=== PATIENT | male | born 1965 | race Caucasian/White ===

== ENCOUNTER 2019-10-09 09:29 | Outpatient (CLI) | payer OTHER ==
[~2019-10-09 09:29] MED LIST: BENADRYL25 MG PO; CALADRYL CLEAR177 ML TP; MEDROL4 MG PO; PEPCID40 MG PO
== END 2019-10-09 13:19 | disposition home or self-care (01) ==
LOC: TOM 09:29
DX: R10.84 Generalized abdominal pain (principal); E11.9 Type 2 diabetes mellitus without complications; R19.5 Other fecal abnormalities; R39.16 Straining to void; N50.819 Testicular pain, unspecified; Z76.0 Encounter for issue of repeat prescription

== ENCOUNTER → 2021-02-22 07:17 | Outpatient (CLI) | payer OTHER ==
[~2021-02-22 07:17] MED LIST changes: +AMLODIPINE BESYL5 MG PO; +ATORVASTATIN CA40 MG PO; +CLOPIDOGREL BIS75 MG PO; +KETO10TA2 PO; +LOSARTAN POTAS100 MG PO; +METOPROLOL SUC100 MG PO; +SYNJARDY XR 121 EACH PO; +TOUJEO SOL300 UNIT/1 SQ; +XOPENEX0.63 MG/3 IH
== END | disposition home or self-care (01) ==
LOC: LAB 07:17
PROVIDERS: ATTEND General Practice
DX: R60.0 Localized edema (principal); F17.200 Nicotine dependence, unspecified, uncomplicated; Z71.6 Tobacco abuse counseling; M79.604 Pain in right leg; M79.605 Pain in left leg; I10 Essential (primary) hypertension

== ENCOUNTER 2021-03-02 09:19 | Outpatient (CLI) | payer OTHER ==
[~2021-03-02 09:19] MED LIST changes: -AMLODIPINE BESYL5 MG PO; -ATORVASTATIN CA40 MG PO; -CLOPIDOGREL BIS75 MG PO; -KETO10TA2 PO; -LOSARTAN POTAS100 MG PO; -METOPROLOL SUC100 MG PO; -SYNJARDY XR 121 EACH PO; -TOUJEO SOL300 UNIT/1 SQ; -XOPENEX0.63 MG/3 IH
== END 2021-03-02 10:35 | disposition home or self-care (01) ==
LOC: NUCLEAR 09:19
PROVIDERS: ATTEND General Practice
DX: M79.604 Pain in right leg (principal); M79.605 Pain in left leg; I73.9 Peripheral vascular disease, unspecified

== ENCOUNTER 2021-03-03 08:38 | Outpatient (CLI) | payer OTHER | END 2021-03-03 09:25 | disposition home or self-care (01) | LOC: NUCLEAR 08:38 | PROVIDERS: ATTEND General Practice | DX: M79.605 Pain in left leg (principal); M79.604 Pain in right leg; R60.0 Localized edema ==

== ENCOUNTER 2021-04-24 22:10 | Emergency (ER) | payer OTHER ==
[~2021-04-24] VITALS: Ht 378.5 cm; Wt 90.7 kg
[2021-04-24] MEDS ORDERED: ATORVASTATIN CA40 MG PO (22:34)
[2021-04-24] MEDS ORDERED: METOPROLOL SUC100 MG PO (22:34)
[2021-04-24] MEDS ORDERED: AMLODIPINE BESYL5 MG PO (22:34)
[2021-04-24] MEDS ORDERED: CLOPIDOGREL BIS75 MG PO (22:35)
[2021-04-24] MEDS ORDERED: LOSARTAN POTAS100 MG PO (22:35)
[2021-04-24] MEDS ORDERED: TOUJEO SOL300 UNIT/1 SQ (22:35)
[2021-04-24] MEDS ORDERED: SYNJARDY XR 121 EACH PO (22:37)
[2021-04-25] MEDS ORDERED: KETO10TA2 PO (01:39)
[2021-04-25] MEDS ORDERED: XOPENEX0.63 MG/3 IH (01:39)
== END 2021-04-25 02:47 | disposition home or self-care (01) ==
LOC: ER 22:10
DX: T54.91XA Toxic effect of unspecified corrosive substance, accidental (unintentional), initial encounter (principal); Y93.E9 Activity, other interior property and clothing maintenance; Y92.019 Unspecified place in single-family (private) house as the place of occurrence of the external cause; R05 Cough; Z03.818 Encounter for observation for suspected exposure to other biological agents ruled out

== ENCOUNTER 2021-08-30 20:08 | Emergency (ER) | payer OTHER ==
[~2021-08-30] VITALS: Ht 172.7 cm; Wt 90.7 kg
[~2021-08-30 20:08] MED LIST changes: +AMLODIPINE BESYL5 MG PO; +ATORVASTATIN CA40 MG PO; +CLOPIDOGREL BIS75 MG PO; +KETO10TA2 PO; +LOSARTAN POTAS100 MG PO; +METOPROLOL SUC100 MG PO; +SYNJARDY XR 121 EACH PO; +TOUJEO SOL300 UNIT/1 SQ; +XOPENEX0.63 MG/3 IH
[2021-08-30] MEDS ORDERED: MEDROLPACK PO (22:56)
[2021-08-30] MEDS ORDERED: BENZONATATE200 M1 PO (22:58)
[2021-08-30] MEDS ORDERED: CORTISPORIN EAR10 M1 OT ×2 (22:58→23:01)
[2021-08-30] MEDS ORDERED: CORTISPORIN EAR10 M1 OPHT (22:59)
== END 2021-08-30 23:01 | disposition home or self-care (01) ==
LOC: ER 20:08
DX: J06.9 Acute upper respiratory infection, unspecified (principal); B34.9 Viral infection, unspecified; H60.90 Unspecified otitis externa, unspecified ear; Z20.822 Contact with and (suspected) exposure to COVID-19

== ENCOUNTER 2022-02-02 13:46 | Inpatient (IN) | payer OTHER ==
[~2022-02-02] VITALS: Ht 172.7 cm; Wt 94.3 kg
[~2022-02-02 13:46] MED LIST changes: +BENZONATATE200 M1 PO; +CORTISPORIN EAR10 M1 OPHT; +CORTISPORIN EAR10 M1 OT; +MEDROLPACK PO
[2022-02-02] MEDS ORDERED: CHILDREN'S ASPI81 MG (14:10)
[2022-02-02] MEDS ORDERED: PLAVIX75 MG (14:10)
== END 2022-02-03 20:27 | disposition home or self-care (01) | DRG 305 ==
LOC: ER 13:46 → SEC-K 23:03 → MEDJ 23:03 → SEC-K 02-03 09:09 → MEDJ 02-03 14:17
PROVIDERS: ADMIT Internal Medicine; ATTEND Internal Medicine
PROC: 4A12X4Z Monitoring of Cardiac Electrical Activity, External Approach (ICD-10-PCS; principal; 2022-02-02)
DX: I11.9 Hypertensive heart disease without heart failure (principal); I25.10 Atherosclerotic heart disease of native coronary artery without angina pectoris; Z20.822 Contact with and (suspected) exposure to COVID-19

== ENCOUNTER 2022-04-13 08:43 | Outpatient (CLI) | payer OTHER ==
[~2022-04-13 08:43] MED LIST changes: +CHILDREN'S ASPI81 MG; +PLAVIX75 MG
== END 2022-04-13 08:44 | disposition home or self-care (01) ==
LOC: NUCLEAR 08:43
PROVIDERS: ATTEND General Practice
DX: I70.223 Atherosclerosis of native arteries of extremities with rest pain, bilateral legs (principal); G57.13 Meralgia paresthetica, bilateral lower limbs; E11.42 Type 2 diabetes mellitus with diabetic polyneuropathy; E11.59 Type 2 diabetes mellitus with other circulatory complications; Z88.0 Allergy status to penicillin

== ENCOUNTER 2022-04-14 08:59 | Outpatient (CLI) | payer OTHER | END 2022-04-14 09:01 | disposition home or self-care (01) | LOC: NUCLEAR 08:59 | PROVIDERS: ATTEND General Practice | DX: I70.223 Atherosclerosis of native arteries of extremities with rest pain, bilateral legs (principal); G57.13 Meralgia paresthetica, bilateral lower limbs; E11.42 Type 2 diabetes mellitus with diabetic polyneuropathy; E11.29 Type 2 diabetes mellitus with other diabetic kidney complication; E11.59 Type 2 diabetes mellitus with other circulatory complications; Z88.0 Allergy status to penicillin ==

== ENCOUNTER 2025-01-27 21:55 | Emergency (ER) | payer OTHER ==
[~2025-01-27] VITALS: Ht 172.7 cm; Wt 81.6 kg
[2025-01-27] MEDS ORDERED: SYNJARDY 12.5-1 EACH PO (22:16)
[2025-01-27] MEDS ORDERED: OZEMPIC0.25 MG/02 SQ (22:18)
[2025-01-27] MEDS ORDERED: KETOROLAC TROMETHAMINE 60 MG VIAL IM ONE ×2 (22:30→23:15)
[2025-01-27] MEDS ORDERED: ORPHENADRINE CITRATE 30 MG/ML AMPUL IM ONE (22:30)
[2025-01-27] MEDS ORDERED: ORPHENADRINE CITRATE 30 MG/ML AMPUL ONE (23:14)
[2025-01-27] MEDS ORDERED: DICLOFENAC SODI75 MG PO (23:30)
[2025-01-27] MEDS ORDERED: NORFLEX100MG PO (23:30)
== END 2025-01-28 00:51 | disposition home or self-care (01) ==
LOC: ER 21:55
DX: M94.0 Chondrocostal junction syndrome [Tietze] (principal); R10.9 Unspecified abdominal pain; I10 Essential (primary) hypertension; E11.9 Type 2 diabetes mellitus without complications; Z79.84 Long term (current) use of oral hypoglycemic drugs; Z88.0 Allergy status to penicillin